=== PATIENT | female | born 1935 | race Hispanic/Latino ===

== ENCOUNTER 2018-11-05 09:04 | Emergency (ER) | payer OTHER, MEDICARE ==
[2018-11-05] MEDS ORDERED: ACETAMINOPHEN-CODEINE 300/30MG TAB ONE (10:06)
== END 2018-11-05 12:34 | disposition home or self-care (01) ==
LOC: EDH 09:04
DX: S40.011A Contusion of right shoulder, initial encounter (principal); S50.01XA Contusion of right elbow, initial encounter; S86.911A Strain of unspecified muscle(s) and tendon(s) at lower leg level, right leg, initial encounter; I10 Essential (primary) hypertension; W18.39XA Other fall on same level, initial encounter; Y93.01 Activity, walking, marching and hiking; Y92.89 Other specified places as the place of occurrence of the external cause; Y99.8 Other external cause status
CPT/HCPCS: 73030; 73070; 73562

== ENCOUNTER 2023-08-27 23:09 | Emergency (ER) | payer MEDICARE ==
[~2023-08-27] VITALS: Ht 152.4 cm; Wt 62.6 kg
[2023-08-27] MEDS ORDERED: IOHEXOL 350 MG/ML 100ML INFUS..BTL IV ONE (23:23)
[2023-08-27] MEDS ORDERED: MORPHINE 4 MG SYG ONE (23:29)
[2023-08-27] MEDS ORDERED: FAMOTIDINE 20MG VIAL IV ONE (23:30)
[2023-08-27] MEDS ORDERED: MORPHINE 2 MG SYG IVP ONE (23:30)
[2023-08-27 23:33] LABS: HEMATOCRIT 24.3 % (36-48); MEAN CORPUSCULAR HEMOGLOBIN 33.3 pg (27.0-33.0); MEAN CORPUSCULAR HGB CONC 33.3 g/dL (32.0-36.0); RED BLOOD CELL COUNT(AUTO) 2.43 MIL/uL (4.00-5.50); RED CELL DISTRIBUTION WIDTH 12.9 % (11.0-15.5); WHITE BLOOD COUNT (AUTO) 9.5 K/uL (4.8-10.8)
[2023-08-27 23:42] LABS: POTASSIUM 3.9 mmol/L (3.5-5.1)
[2023-08-28] MEDS ORDERED: LEVETIRACETAM 500 MG/5 ML SD VIAL IV ONE (00:22)
[2023-08-28] MEDS ORDERED: LEVETIRACETAM 500 MG/5 ML SD VIAL IV STA (00:24)
[2023-08-28] MEDS ORDERED: ROCURONIUM BROMIDE 10MG/1ML 5ML VL ONE (00:28)
[2023-08-28] MEDS ORDERED: ONDANSETRON 4MG INJ ONE (00:28)
[2023-08-28] MEDS ORDERED: ETOMIDATE 20MG VIAL ONE (00:28)
[2023-08-28] MEDS ORDERED: ONDANSETRON 4MG INJ IVP STA (00:36)
[2023-08-28 00:41] VITALS: PULSE 75; O2SAT 100
[2023-08-28 01:25] LABS: ABG BASE EXCESS -1.2 mmol/L (-2.0-3.0); ABG HCO3 22.4 mmol/L (21.0-28.0); ABG OXYGEN SATURATION 99.2 % (95.0-99.0); ABG PCO2 33 mmHg (32-45); ABG PH 7.453 (7.35-7.450); CARBON MONOXIDE 0.3; HHb 0.8; PO2, ARTERIAL BG > 500.0 mmHg (83.0-108.0); VENT MODE, BG AC (ROOM AIR)
[2023-08-28] MEDS ORDERED: NOREPINEPHRIN 4MG/NS 250ML 250 ML IV ONE (02:54)
[2023-08-28 02:57] VITALS: PULSE 77; O2SAT 100
[2023-08-28 03:52] VITALS: BP 150/71; PULSE 80; RESP 14; O2SAT 100
[2023-08-28] MEDS ORDERED: MIDAZOLAM 50MG-0.9% NS 50ML 50 ML IV SCH (04:30)
== END 2023-08-28 02:55 | disposition short-term general hospital (02) ==
LOC: EDH 23:09
DX: I60.9 Nontraumatic subarachnoid hemorrhage, unspecified (principal); I11.0 Hypertensive heart disease with heart failure; I50.9 Heart failure, unspecified; E11.9 Type 2 diabetes mellitus without complications
CPT/HCPCS: 99285; 70450; 31500; 96374; 71045; 96375 ×2; 82947; 82435; 82550; 84132; 84295; 80048; 82803; 85027; 85018; 83605 ×2; 36415; 72170; 72125; 71260; 74177; J2270; Q9967; J3490 ×3; J1953; J2405